=== PATIENT | male | born 1975 | race Caucasian/White ===

== ENCOUNTER 2020-04-12 22:48 | Emergency (ER) | payer OTHER ==
[~2020-04-12] VITALS: Ht 177.8 cm; Wt 68.0 kg
[2020-04-12] MEDS ORDERED: OLANZAPINE 10 MG VIAL IM ONE ×2 (23:00→23:13)
[2020-04-12] MEDS ORDERED: LORAZEPAM INJ 2 MG/ML VIAL IM ONE (23:00)
--- NOTE | 2020-04-12 23:00 | NUR ---
PT WALKED IN TO ER WAITING ROOM. PER REPORT, PT STARTED ACTING BIZARRE AND KEPT ON BANGING HIS HEAD ON THE REGISTRATION COUNTER. PT NOT ANSWERING QUESTIONS, MUMBLING AND AGGRESSIVE. PT PLACED ON SAFETY PRECAUTIONS AND ON CONSTANT ONSERVATION. PT CHANGED INTO GOWN, RESPIRATIONS EVEN AND UNLABORED ON R AW/ NAD NOTED. PT CONNECTED TO THE MONITOR AND POX.
[2020-04-12] MEDS ORDERED: LORAZEPAM INJ 2 MG/ML VIAL ONE (23:13)
--- NOTE | 2020-04-12 23:50 | NUR ---
URINE AND BLOOD COLLECTED AND SENT TO LAB
[2020-04-12 23:56] LABS: BASOPHILS % (AUTO) 0.9 % (0.0-2.0); EOSINOPHILS % (AUTO) 3.9 % (0.0-6.0); HEMATOCRIT 39 % (39-51); HEMOGLOBIN 12.8 g/dL (13.5-17.5); LYMPHOCYTES # (AUTO) 2.3 /CMM (0.8-4.8); LYMPHOCYTES % (AUTO) 45.6 % (20.0-44.0); MEAN CORPUSCULAR HGB CONC 33 g/dl (31.0-36.0); MEAN CORPUSCULAR VOLUME 93 fL (80-96); MONOCYTES # (AUTO) 0.4 /CMM (0.1-1.30); MONOCYTES % (AUTO) 6.9 % (2.0-12.0); NEUTROPHILS # (AUTO) 2.2 /CMM (1.8-8.9); NEUTROPHILS % (AUTO) 42.7 % (43.0-81.0); PLATELET COUNT (AUTO) 201 /CMM (150-450); RED BLOOD CELL COUNT(AUTO) 4.14 MIL/uL (4.5-6.0); WHITE BLOOD COUNT (AUTO) 5.1 K/uL (4.3-11.0)
[2020-04-13] MEDS ORDERED: HALOPERIDOL LACTATE INJ 5 MG/ML VIAL ONE ×2 (00:05→14:34)
[2020-04-13] MEDS ORDERED: LIDOCAINE 2% JEL UROJET 10 ML MM ONE (00:24)
--- NOTE | 2020-04-13 00:25 | NUR ---
PT CONSTANTLY YELLING AT BEDSIDE AND AGRESSIVE TO STAFF. AWARE
[2020-04-13] MEDS ORDERED: HALOPERIDOL LACTATE INJ 5 MG/ML VIAL IM ONE ×2 (00:30→14:30)
[2020-04-13 00:38] LABS: ALANINE AMINOTRANSFERASE 20 U/L (12-78); ALBUMIN 3.3 g/dL (3.4-5.0); ALCOHOL, BLOOD < 3 mg/dL (0-0); ALKALINE PHOSPHATASE 88 U/L (46-116); ASPARTATE AMINOTRANSFERASE 22 U/L (15-37); BILIRUBIN,DIRECT 0.2 mg/dL (0.0-0.2); BILIRUBIN,TOTAL 0.6 mg/dL (0.2-1.0); CALCIUM, SERUM 8.6 mg/dL (8.5-10.1); CARBON DIOXIDE 26 mmol/L (21-32); CHLORIDE 107 mmol/L (98-107); CREATININE 0.8 mg/dL (0.6-1.3); GLUCOSE 93 mg/dL (74-106); POTASSIUM 3.2 mmol/L (3.5-5.1); SODIUM SERUM 142 mmol/L (136-145); TOTAL PROTEIN, SERUM 6.3 g/dL (6.4-8.2); UREA NITROGEN, BLOOD 23 mg/dL (7-18)
[2020-04-13 00:43] LABS: ACETAMINOPHEN 0 ug/ml (10-30); SALICYLATE 1.6 mg/dL (2.8-20.0)
[2020-04-13] MEDS ORDERED: diphenhydrAMINE HCL 50 MG/ML VIAL ONE (01:17)
[2020-04-13] MEDS ORDERED: diphenhydrAMINE HCL 50 MG/ML VIAL IM ONE (01:30)
[2020-04-13 02:46] LABS: APPEARANCE,URINE CLEAR (CLEAR); BILIRUBIN,URINE NEGATIVE (NEGATIVE); BLOOD, URINE TRACE Ery/uL (NEGATIVE); COLOR,URINE YELLOW (YELLOW); KETONES,URINE NEGATIVE (NEGATIVE); LEUKOCYTE ESTERASE ,URINE NEGATIVE (NEGATIVE); NITRITE, URINE NEGATIVE (NEGATIVE); PROTEIN,URINE NEGATIVE (NEGATIVE); UGLUCOSE NEGATIVE (NEGATIVE); UROBILINOGEN,URINE 0.2 EU/dL (0.2)
[2020-04-13 02:51] LABS: BACTERIA,URINE Rare /HPF (None Seen); SQUAMOUS EPITHELIAL CELL,UR Rare /HPF (None Seen); WBC,URINE 0-2 /HPF (0-3)
[2020-04-13] MEDS ORDERED: LORAZEPAM INJ 2 MG/ML VIAL ONE (03:23)
[2020-04-13] MEDS ORDERED: LORAZEPAM INJ 2 MG/ML VIAL IVP ONE (03:30)
--- NOTE | 2020-04-13 03:49 | NUR ---
PT SENT TO CT
--- NOTE | 2020-04-13 04:00 | NUR ---
PT BACK FROM CT
--- NOTE | 2020-04-13 04:39 | NUR ---
Patient is resting comfortably in bed with eyes closed. Easily aroused. VSS
--- NOTE | 2020-04-13 07:07 | NUR ---
PT RESTING COMFORTABLY IN BED. VSS. NO ACUTE DISTRESS NOTED. WILL CONTINUE TO MONITOR
--- NOTE | 2020-04-13 09:00 | NUR ---
TRANSFERED TO BED 13. ON MONITOR W/ STABLE VITALS. NAD NOTED. SITTER AT BEDSIDE.
--- NOTE | 2020-04-13 13:56 | NUR ---
ERIKA CALLED PER MD REQUEST
--- NOTE | 2020-04-13 14:04 | NUR ---
ERIKA TALKING TO ERIKA RN FOR PLAN OF CARE/ PSYCH EVAL.
--- NOTE | 2020-04-13 14:12 | NUR ---
DR HERNANDEZ IN TO SEE PATIENT. AWAKE, TALKING GIBBERISH. NOT MAKING SENSE. ON MONITOR. SITTER AT BEDSIDE.
--- NOTE | 2020-04-13 16:40 | NUR ---
ERIKA LECHUGA [employer] FOR EVAL.
--- NOTE | 2020-04-13 16:56 | NUR ---
Patient given written and verbal discharge instructions. Patient verbalizes understanding of instructions. Patient is ambulatory with steady gait. Refuses offer of residential placement. Patient given list of available shelters in surrounding area.
[2020-04-13 16:58] VITALS: BP 117/62
== END 2020-04-13 16:59 | disposition home or self-care (01) ==
LOC: ER 23:08 → EDBD 23:08 → ER 04-13 16:59
DX: F23 Brief psychotic disorder (principal); R45.1 Restlessness and agitation; R41.82 Altered mental status, unspecified
CPT/HCPCS: 36415; 70450; 80048; 80076; 80305; 80307; 80329; 81001; 85025; 96372 ×4; 96374; 99285; G0480; J1200; J1630 ×2; J2060 ×2; J3490 ×2; 81000-TC

== ENCOUNTER 2021-01-07 03:56 | Emergency (ER) | payer MEDICAID ==
--- NOTE | 2021-01-07 04:59 | NUR ---
CALLED TO TRIAGE
--- NOTE | 2021-01-07 05:18 | NUR ---
CALLED TO TRIAGE, PT NOT IN THE WAITING ROOM
--- NOTE | 2021-01-07 05:20 | NUR ---
PT LEFT WITHOUT BEING SEEN OR TRIAGE. MD LONDONO
== END 2021-01-07 05:25 | disposition left against medical advice (07) ==
LOC: ER 03:56
DX: Z53.21 Procedure and treatment not carried out due to patient leaving prior to being seen by health care provider (principal)

== ENCOUNTER 2024-04-09 18:17 | Emergency (ER) | payer MEDICAID | END 2024-04-09 20:11 | disposition left against medical advice (07) | LOC: ER 18:21 | DX: S59.802A Other specified injuries of left elbow, initial encounter (principal); Z53.21 Procedure and treatment not carried out due to patient leaving prior to being seen by health care provider; Y93.89 Activity, other specified; Y92.89 Other specified places as the place of occurrence of the external cause; Y99.8 Other external cause status ==